=== PATIENT | male | born 1975 | race Caucasian/White ===

== ENCOUNTER 2017-04-29 11:39 | Emergency (ER) | payer MEDICAID ==
[~2017-04-29] VITALS: Ht 167.6 cm; Wt 60.0 kg
[~2017-04-29 11:39] MED LIST: INSULIN; METFORMIN
[2017-04-29 11:47] LABS: GLUCOSE,POINT OF CARE 199 MG/DL (70-110)
[2017-04-29] MEDS ORDERED: INSLAN SQ (11:58)
[2017-04-29] MEDS ORDERED: METF500T7 PO (11:58)
[2017-04-29] MEDS ORDERED: GLIP5TAB11 PO (11:58)
[2017-04-29 12:46] VITALS: BP 111/73
== END 2017-04-29 13:49 | disposition home or self-care (01) ==
LOC: EMS 11:41
DX: L60.8 Other nail disorders (principal); L30.9 Dermatitis, unspecified; E11.9 Type 2 diabetes mellitus without complications; F17.210 Nicotine dependence, cigarettes, uncomplicated; F15.10 Other stimulant abuse, uncomplicated; Z79.4 Long term (current) use of insulin
CPT/HCPCS: 11740; 82962; 99284